=== PATIENT | male | born 1970 | race Caucasian/White ===

== ENCOUNTER 2020-08-12 22:36 | Emergency (ER) | payer OTHER ==
[~2020-08-12 22:36] MED LIST: AMOXICILLIN500 MG PO; VICODIN 5/500 505 MG PO
[2020-08-12 22:50] VITALS: BP 169/92
[2020-08-12 23:11] LABS: MEAN CELL VOLUME 87.8 fl (80.0-94.0); MEAN CORPUSCULAR HGB 27.5 pg (27.0-31.0); MEAN CORPUSCULAR HGB CONC 31.4 g/dl (33.0-37.0); PLATELET COUNT AUTOMATED 332 10*3/uL (130-400); RED BLOOD COUNT 5.01 10*6/uL (4.50-5.90); RED CELL DISTRI WIDTH 14.2 % (0-14.5); WHITE BLOOD COUNT 11.8 10*3/uL (4.8-10.8)
[2020-08-12 23:28] LABS: ALBUMIN 3.1 gm/dl (3.1-4.5); ALKALINE PHOSPHATASE 127 U/L (45-117); BUN 18 mg/dl (7-24); CHLORIDE 108 mmol/L (98-107); CREATININE 1.16 mg/dL (0.70-1.30); LIPASE 112 U/L (73-393); POTASSIUM 3.4 mmol/L (3.5-5.1); SGOT/AST 9 IU/L (3-35); SGPT/ALT 20 U/L (12-78); SODIUM 139 mmol/L (136-145); TOTAL PROTEIN 6.9 gm/dL (6.4-8.2)
[2020-08-12 23:30] LABS: BASOPHILS 1 % (0-1); PLATELET SUFFICIENCY NORMAL (NORMAL); TOTAL CELLS COUNTED 100 #CELLS
[2020-08-13] MEDS ORDERED: PEPCID20 MG PO (00:45)
== END 2020-08-13 01:01 | disposition home or self-care (01) ==
LOC: ED 22:36
PROVIDERS: Physician Assistant
DX: R10.13 Epigastric pain (principal); R12 Heartburn; R09.81 Nasal congestion

== ENCOUNTER → 2021-10-27 | Outpatient (CLI) | payer OTHER ==
[~2021-10-27] MED LIST changes: +PEPCID20 MG PO
== END | disposition home or self-care (01) ==
LOC: ORTHO 01:47
PROVIDERS: ATTEND Orthopaedic Surgery
DX: M25.531 Pain in right wrist (principal); M25.532 Pain in left wrist

== ENCOUNTER → 2021-12-04 | Day surgery (SDC) | payer OTHER ==
[~2021-12-04] VITALS: Ht 182.8 cm; Wt 158.8 kg
[~2021-12-04] MED LIST changes: +SERTRALINE HYD100 MG PO
[2021-12-04 07:15] VITALS: BP 144/72
[2021-12-04 08:05] VITALS: BP 149/57
[2021-12-04 08:17] VITALS: BP 121/67
[2021-12-04 08:35] VITALS: BP 114/67
== END | disposition home or self-care (01) ==
LOC: SDC 12-02 13:15
PROVIDERS: ATTEND Orthopaedic Surgery
DX: G56.03 Carpal tunnel syndrome, bilateral upper limbs (principal); F32.9 Major depressive disorder, single episode, unspecified; G47.33 Obstructive sleep apnea (adult) (pediatric); Z98.890 Other specified postprocedural states; Z99.89 Dependence on other enabling machines and devices; Z79.899 Other long term (current) drug therapy

== ENCOUNTER → 2021-12-30 | Day surgery (SDC) | payer OTHER ==
[~2021-12-30] VITALS: Ht 182.8 cm; Wt 165.6 kg
[2021-12-30 07:03] VITALS: BP 164/89
[2021-12-30 08:07] VITALS: BP 144/83
[2021-12-30 08:22] VITALS: BP 148/84
[2021-12-30 08:34] VITALS: BP 128/66
== END | disposition home or self-care (01) ==
LOC: SDC 12-26 14:00
PROVIDERS: ATTEND Orthopaedic Surgery
DX: G56.02 Carpal tunnel syndrome, left upper limb (principal); I10 Essential (primary) hypertension; G47.33 Obstructive sleep apnea (adult) (pediatric)

== ENCOUNTER → 2022-03-11 | Outpatient (CLI) | payer OTHER | END | disposition home or self-care (01) | LOC: LAB 12:25 | PROVIDERS: ATTEND Student in an Organized Health Care Education/Training Program | DX: D64.9 Anemia, unspecified (principal) ==

== ENCOUNTER → 2022-05-15 | Outpatient (CLI) | payer OTHER ==
[2022-05-15 16:47] LABS: BASO # 0.1 10*3/uL (0.0-0.1); BASO % 0.7 % (0.0-1.0); EOS # 0.1 10*3/uL (0.0-0.4); EOS % 1.4 % (1.0-4.0); HEMATOCRIT 40.4 % (42.0-52.0); LYMPH # 1.9 10*3/uL (1.3-4.4); LYMPH % 25.8 % (27.0-41.0); MEAN CELL VOLUME 81.5 fl (80.0-94.0); MEAN CORPUSCULAR HGB 25.2 pg (27.0-31.0); MEAN CORPUSCULAR HGB CONC 30.9 g/dl (33.0-37.0); MEAN PLATELET VOLUME 10.3 fl (9.6-12.3); MONO # 0.6 10*3/uL (0.1-1.0); MONO % 7.6 % (3.0-9.0); NEUT # 4.7 10*3/uL (2.3-7.9); NEUT % 64.2 % (47.0-73.0); PLATELET COUNT AUTOMATED 296 10*3/uL (130-400); RED BLOOD COUNT 4.96 10*6/uL (4.50-5.90); RED CELL DISTRI WIDTH 19.3 % (0-14.5); WHITE BLOOD COUNT 7.2 10*3/uL (4.8-10.8)
[2022-05-15 17:02] LABS: ALKALINE PHOSPHATASE 108 U/L (46-116); BUN 16 mg/dl (9-23); CHLORIDE 107 mmol/L (98-107); POTASSIUM 4.1 mmol/L (3.4-5.1); SGPT/ALT 38 U/L (10-49)
== END | disposition home or self-care (01) ==
LOC: LAB 16:00
PROVIDERS: ATTEND Student in an Organized Health Care Education/Training Program
DX: I10 Essential (primary) hypertension (principal); R53.83 Other fatigue

== ENCOUNTER 2022-11-21 20:34 | Emergency (ER) | payer OTHER ==
[~2022-11-21] VITALS: Ht 182.8 cm; Wt 158.8 kg
[2022-11-21 20:44] VITALS: BP 168/84
[2022-11-21] MEDS ORDERED: SEPTDS PO (20:53)
== END 2022-11-21 21:08 | disposition home or self-care (01) ==
LOC: ED 20:34
DX: L03.116 Cellulitis of left lower limb (principal); F17.210 Nicotine dependence, cigarettes, uncomplicated; Z79.899 Other long term (current) drug therapy; Z98.84 Bariatric surgery status

== ENCOUNTER → 2023-09-17 | Outpatient (CLI) | payer OTHER ==
[~2023-09-17] MED LIST changes: +SEPTDS PO
== END ==
LOC: LAB 08:08
PROVIDERS: ATTEND Family Medicine
DX: D64.9 Anemia, unspecified (principal)

== ENCOUNTER 2023-11-17 17:50 | Inpatient (IN) | payer OTHER ==
[~2023-11-17] VITALS: Ht 182.8 cm; Wt 161.7 kg
[2023-11-17 18:10] VITALS: BP 153/76
[2023-11-17 18:36] LABS: BASO # 0.1 10*3/uL (0.0-0.1); BASO % 0.6 % (0.0-1.0); EOS # 0.1 10*3/uL (0.0-0.4); HEMATOCRIT 42.3 % (42.0-52.0); LYMPH # 2.5 10*3/uL (1.3-4.4); LYMPH % 23.6 % (27.0-41.0); MEAN CELL VOLUME 94.2 fl (80.0-94.0); MEAN CORPUSCULAR HGB CONC 32.9 g/dl (33.0-37.0); MEAN PLATELET VOLUME 9.9 fl (9.6-12.3); MONO # 0.8 10*3/uL (0.1-1.0); MONO % 7.4 % (3.0-9.0); NEUT % 67.1 % (47.0-73.0); PLATELET COUNT AUTOMATED 272 10*3/uL (130-400); RED BLOOD COUNT 4.49 10*6/uL (4.50-5.90); RED CELL DISTRI WIDTH 12.9 % (0-14.5); WHITE BLOOD COUNT 10.4 10*3/uL (4.8-10.8)
[2023-11-17 18:56] LABS: ALKALINE PHOSPHATASE 115 U/L (46-116); BUN 12 mg/dl (9-23); CHLORIDE 107 mmol/L (98-107); SGPT/ALT 21 U/L (5-49); TOTAL PROTEIN 6.4 gm/dL (6.0-8.0)
[2023-11-17 19:00] LABS: ETHYL ALCOHOL < 3.0 mg/dl (<3)
[2023-11-17 20:02] LABS: BILIRUBIN Negative (Negative); BLOOD Negative (Negative); CLARITY Clear (Clear); COLOR Yellow (Yellow); GLUCOSE Negative (Negative); KETONE Trace (Negative); LEUKO ESTERASE Negative (Negative); NITRITE Negative (Negative); PH 5.5 (4.5-8.0); SPECIFIC GRAVITY 1.025 (1.001-1.030)
[2023-11-17 20:09] LABS: URINE AMPHETAMINES Negative (1000ng/ml); URINE BARBITURATES Negative (200ng/ml); URINE BENZODIAZEPINES Negative (200ng/ml); URINE CANNABINOIDS (THC) Positive (50ng/ml); URINE COCAINE Negative (300ng/ml); URINE METHADONE Negative (300ng/ml); URINE OPIATES Negative (300ng/ml); URINE PHENCYCLIDINE Negative (25ng/ml)
[2023-11-17 20:22] LABS: MUCOUS 1+; RBC 0-2 rbc/hpf (0-2)
[2023-11-17] MEDS ORDERED: ACETAMINOPHEN 325 MG TAB PO PRN (21:20)
[2023-11-17] MEDS ORDERED: NICOTINE POLACRILEX 4 MG GUM PO PRN (21:25)
[2023-11-17] MEDS ORDERED: Sennosides A and B 8.6 MG TAB PO PRN (21:25)
[2023-11-17] MEDS ORDERED: LORazepam 2 MG/ML VIAL IV PRN (21:25)
[2023-11-17] MEDS ORDERED: MG-AL HYDROXIDE/SIMETICONE 30 ML UDC PO PRN (21:25)
[2023-11-17] MEDS ORDERED: ACETAMINOPHEN 500 MG TAB PO PRN (21:25)
[2023-11-17] MEDS ORDERED: BISACODYL 10 MG SUPP R PRN (21:25)
[2023-11-17] MEDS ORDERED: IBUPROFEN 600 MG TAB PO PRN (21:25)
[2023-11-17] MEDS ORDERED: Loperamide Hydrochloride 2 MG CAP PO PRN ×2 (21:25)
[2023-11-17 21:28] VITALS: BP 154/93
[2023-11-17] MEDS ORDERED: ZESTRIL10 MG PO (21:30)
[2023-11-17] MEDS ORDERED: VITAMIN D310 MC1 PO (21:32)
[2023-11-17] MEDS ORDERED: MAGNESIUM100 M1 PO (21:33)
[2023-11-17] MEDS ORDERED: LORazepam 1 MG TAB PO SCH (22:00)
[2023-11-18 00:58] VITALS: BP 133/69
[2023-11-18 05:09] VITALS: BP 119/70
[2023-11-18 05:33] LABS: BUN 14 mg/dl (9-23); CHLORIDE 107 mmol/L (98-107); POTASSIUM 3.8 mmol/L (3.4-5.1)
[2023-11-18 06:04] LABS: BASO # 0.1 10*3/uL (0.0-0.1); BASO % 0.7 % (0.0-1.0); EOS # 0.2 10*3/uL (0.0-0.4); EOS % 2.1 % (1.0-4.0); HEMATOCRIT 40.7 % (42.0-52.0); LYMPH # 2.8 10*3/uL (1.3-4.4); LYMPH % 34.1 % (27.0-41.0); MEAN CORPUSCULAR HGB 30.9 pg (27.0-31.0); MEAN CORPUSCULAR HGB CONC 32.9 g/dl (33.0-37.0); MEAN PLATELET VOLUME 10.4 fl (9.6-12.3); MONO # 0.7 10*3/uL (0.1-1.0); MONO % 8.8 % (3.0-9.0); NEUT # 4.4 10*3/uL (2.3-7.9); NEUT % 54.1 % (47.0-73.0); PLATELET COUNT AUTOMATED 258 10*3/uL (130-400); RED BLOOD COUNT 4.33 10*6/uL (4.50-5.90); RED CELL DISTRI WIDTH 13.2 % (0-14.5); WHITE BLOOD COUNT 8.2 10*3/uL (4.8-10.8)
[2023-11-18] MEDS ORDERED: Sertraline Hydrochloride 50 MG TAB PO SCH (10:00)
[2023-11-18] MEDS ORDERED: MULTIVITAMIN 1 TAB TAB PO SCH (10:00)
[2023-11-18] MEDS ORDERED: Enoxaparin Sodium 40 MG/0.4 ML SYR SC SCH (10:00)
[2023-11-18] MEDS ORDERED: LISINOPRIL 10 MG TAB PO SCH (10:00)
[2023-11-18] MEDS ORDERED: Thiamine 100 MG TAB PO SCH (10:00)
[2023-11-18] MEDS ORDERED: FOLIC ACID 1 MG TAB PO SCH (10:00)
[2023-11-18 10:02] VITALS: BP 95/53
[2023-11-18 10:36] VITALS: BP 143/66
[2023-11-18 16:00] VITALS: BP 143/66
[2023-11-18 20:00] VITALS: BP 131/66
[2023-11-19] VITALS: BP 148/85
[2023-11-19] MEDS ORDERED: LORazepam 1 MG TAB PO PRN
[2023-11-19] MEDS ORDERED: LORazepam 1 MG TAB PO SCH
[2023-11-19 08:00] VITALS: BP 148/79
[2023-11-19 11:58] VITALS: BP 132/66
[2023-11-19 16:00] VITALS: BP 133/61
[2023-11-19 20:00] VITALS: BP 141/76
[2023-11-20] VITALS: BP 130/73
[2023-11-20 08:00] VITALS: BP 129/78
== END 2023-11-20 11:30 | disposition home or self-care (01) | DRG 897 ==
LOC: ED 17:50 → EDHOLD 20:35 → 4E 11-18 13:39
PROVIDERS: Internal Medicine; Physician Assistant Medical; ADMIT Internal Medicine; ATTEND Internal Medicine
DX: F10.239 Alcohol dependence with withdrawal, unspecified (principal); D64.9 Anemia, unspecified; F41.9 Anxiety disorder, unspecified; I10 Essential (primary) hypertension; F10.29 Alcohol dependence with unspecified alcohol-induced disorder; R73.9 Hyperglycemia, unspecified; G47.33 Obstructive sleep apnea (adult) (pediatric); Z82.5 Family history of asthma and other chronic lower respiratory diseases; Z85.118 Personal history of other malignant neoplasm of bronchus and lung; Z80.8 Family history of malignant neoplasm of other organs or systems; Y90.0 Blood alcohol level of less than 20 mg/100 ml

== ENCOUNTER 2024-06-05 15:04 | Emergency (ER) | payer OTHER ==
[~2024-06-05] VITALS: Ht 182.9 cm; Wt 163.7 kg
[~2024-06-05 15:04] MED LIST changes: +MAGNESIUM100 M1 PO; +VITAMIN D310 MC1 PO; +ZESTRIL10 MG PO
[2024-06-05 15:15] VITALS: BP 144/81
[2024-06-05] MEDS ORDERED: ESZOPICLONE3 MG PO (15:18)
== END 2024-06-05 17:58 | disposition home or self-care (01) ==
LOC: ED 15:04
DX: S80.11XA Contusion of right lower leg, initial encounter (principal); R22.41 Localized swelling, mass and lump, right lower limb; I10 Essential (primary) hypertension; F32.A Depression, unspecified; Z79.899 Other long term (current) drug therapy; Z98.84 Bariatric surgery status; X58.XXXA Exposure to other specified factors, initial encounter; Y93.89 Activity, other specified; Y92.89 Other specified places as the place of occurrence of the external cause; Y99.8 Other external cause status